=== PATIENT | male | born 1945 | race Caucasian/White ===

== ENCOUNTER 2020-10-10 14:38 | Inpatient (IN) | payer MEDICARE, OTHER ==
[2020-10-10] MEDS ORDERED: Acetaminophen 325 MG Tab PO PRN ×2 (16:59→17:56)
[2020-10-10] MEDS ORDERED: Albuterol/Ipratropium 3.0-0.5 MG/3 ML Neb Soln NEB PRN (16:59)
[2020-10-10] MEDS ORDERED: Calcium Carbonate 750 MG Tab.Chew PO PRN ×2 (17:01→18:40)
[2020-10-10] MEDS ORDERED: Melatonin 3 MG Tab PO PRN ×2 (17:02→18:52)
[2020-10-10] MEDS ORDERED: Sennosides 8.6 MG Tab PO PRN (17:02)
[2020-10-10] MEDS ORDERED: Non-Formulary Medication 1 Each (Melatonin/Pyridoxine Hcl (B6) [Melatonin 3 Mg Tablet] 3 M PO PRN (17:56)
[2020-10-10] MEDS ORDERED: Albuterol/Ipratropium 3.0-0.5 MG/3 ML Neb Soln INH PRN (17:56)
--- NOTE | 2020-10-10 18:08 | PCM.HP.2 ---
H&P History of Present Illness - General Date of Service: 10/10/20 Admit Problem/Dx: Admission Diagnosis/Problem Admission Diagnosis/Problem Weakness, s/p COVID pneumonia Source of Information: Patient History Limitations: Reports: No Limitations - History of Present Illness Initial Comments - Free Text/Narative: Lukas Hendrickson ("Ethan") is a 75-year-old male who is admitted today as a stepdown to swing bed after her acute stay for COVID pneumonia. Past medical history is notable only for hyperlipidemia. He was diagnosed with Covid on 09/20/2020 after presenting to the ER in [place] with profound weakness and a cough. He was discharged home with home oxygen monitoring but due to worsening weakness he presented back to the ER on 09/27/2020. Due to profound level of weakness he was admitted to the hospital in [place] and started on standard therapy such as REM to severe, IV dexamethasone, and convalescent plasma. Over the next 2 days his oxygen events continued to rise, d-dimer and white cell count went up. CTA on 09/27/2020 was negative for PE. Due to this he was transferred to the special care unit at [facility] in [place] for further treatment. Received a second dose of convalescent plasma on 10/05/2020. He did complete the entire course of REM to severe and dexamethasone. His oxygen requirement finally started to improve and this was able to be titrated down. He was able to be discharged off of the special care unit on 10/06/2020. Due to ongoing weakness physical therapy and occupational therapy had been seeing him in the hospital and recommended continued half-way at time of discharge. He was deemed well enough to transfer down to a swing bed stay and is now with us at [facility]. the only new medication he brings with him today is a DuoNeb that was prescribed during his stay at [facility]. He can take 1 dose every 4 hours as needed. Otherwise is not on any medications other than supplements. Only allergy is to iodine. At this time patient complains only of continued weakness. Feels like he would to be doing well if he could just get up to use the restroom on his own. He does remain on some low-flow oxygen at this time. Still having some intermittent coughing. Denies any shortness of breath, chest pain, GI upset, bowel or bladder dysfunction. Looking forward to completing his therapies and getting stronger in anticipation of being able to return home with his and his 2 dogs. - Related Data Allergies/Adverse Reactions: Allergies Allergy/AdvReac Type Severity Reaction Status Date / Time iodine Allergy Hives Verified 10/10/20 16:55 Home Medications: Home Meds Acetaminophen 650 mg PO Q4HR PRN 10/10/20 [History] Albuterol/Ipratropium [DuoNeb 3.0-0.5 MG/3 ML] 3 ml INH Q4HR PRN 10/10/20 [History] Ascorbate Calcium [Vitamin C] 500 mg PO DAILY 10/10/20 [History] Calcium Carbonate 1,000 mg PO Q4HR PRN 10/10/20 [History] Cholecalciferol (Vitamin D3) [Vitamin D3] 1,000 units PO DAILY 10/10/20 [History] Docusate Sodium/Sennosides [Senna Plus] 2 tab PO BID PRN 10/10/20 [History] Melatonin/Pyridoxine HCl (B6) [Melatonin 3 mg Tablet] 3 mg PO BEDTIME PRN 10/10/20 [History] Multivitamin [Multi-Day Vitamins] 1 tab PO DAILY 10/10/20 [History] [place]-3/DHA/Epa/Fish Oil [[place] 3 500 Softgel] 1 cap PO DAILY 10/10/20 [History] Past Medical History Cardiovascular History: Reports: High Cholesterol Social & Family History - Family History Cardiac: Reports: Hypertension (Mom) Respiratory: Reports: COPD (mom and dad), Other (See Below) (Lung cancer (mom)) - Tobacco Use Tobacco Use Status *Q: Former Tobacco User - Alcohol Use Alcohol Use History: No - Living Situation & Occupation Living situation: Reports: (Lives at home with and 2 dogs. Son lives in the area.) H&P Review of Systems - Review of Systems: Review Of Systems: See Below General: Reports: Weakness HEENT: Reports: No Symptoms Pulmonary: Reports: No Symptoms Cardiovascular: Reports: No Symptoms Gastrointestinal: Reports: No Symptoms Genitourinary: Reports: No Symptoms Musculoskeletal: Reports: No Symptoms Skin: Reports: No Symptoms Psychiatric: Reports: No Symptoms Neurological: Reports: No Symptoms Hematologic/Lymphatic: Reports: No Symptoms Immunologic: Reports: No Symptoms Exam - Exam Exam: See Below - Vital Signs Vital Signs: Last Vital Signs Temp 98 F 10/10/20 17:26 Pulse 98 11/12/20 17:26 Resp 24 H 10/10/20 17:26 BP 106/67 10/10/20 17:26 Pulse Ox 94 L 10/10/20 17:26 - Exam Quality Assessment: Supplemental Oxygen General: Alert, Oriented HEENT: Conjunctiva Clear, EOMI, Mucosa Moist & [place], Nares Patent Neck: Supple, Trachea Midline Lungs: Normal Respiratory Effort, Crackles (fine crackles appreciated throughout all lung mariscal), Other (supplemental O2 in place, intermittent dry cough) Cardiovascular: Regular Rate, Regular Rhythm GI/Abdominal Exam: Normal Bowel Sounds, Soft, Non-Tender Extremities: Normal Inspection, Normal Range of Motion, Non-Tender, No Pedal Edema Peripheral Pulses: 2+: Dorsalis Pedis (L), Dorsalis Pedis (R) Skin: Warm, Dry, Intact Neurological: Cranial Nerves Intact, Reflexes Equal Bilateral, Strength Equal Bilateral, Other (voice is fairly raspy) Neuro Extensive - Mental Status: Alert, Oriented x3, Normal Mood/Affect Psychiatric: Alert, Normal Affect, Normal Mood Sepsis Event Note - Focused Exam Vital Signs: Vital Signs Temp Pulse Resp BP Pulse Ox 10/10/20 17:26 98 F 98 24 H 106/67 94 L Problem List Initiated/Reviewed/Updated: Yes Orders Last 24hrs: Active Orders 24 hr Category Date Time Status Patient Status [ADT] Routine ADT 10/10/20 17:57 Ordered Activity as Tolerated [RC] 08,20 Care 10/10/20 17:26 Active Oxygen Therapy [RC] PRN Care 10/10/20 17:57 Ordered Pulse Oximetry [RC] CONTINUOUS Care 10/10/20 17:59 Ordered RT Aerosol Therapy [RC] .PRN Care 10/10/20 17:00 Active RT Aerosol Therapy [RC] ASDIRECTED Care 10/10/20 17:57 Ordered Up With Assistance [RC] ASDIRECTED Care 10/10/20 17:57 Ordered VTE/DVT Education [RC] PER UNIT ROUTINE Care 10/10/20 17:57 Ordered Vital Signs [RC] Q8HR Care 10/10/20 17:57 Ordered Consult to Occupational Therapy [OT Evaluation and Cons 10/10/20 16:53 Active Treatment] [CONS] Routine Consult to Physical Therapy [PT Evaluation and Cons 10/10/20 16:52 Active Treatment] [CONS] Routine Regular Diet [DIET] Diet 10/10/20 Dinner Active Acetaminophen [TylenoL] Med 10/10/20 16:59 Active 650 mg PO Q4H PRN Acetaminophen [TylenoL] Med 10/10/20 17:56 Ordered 650 mg PO Q4HR PRN Albuterol/Ipratropium [DuoNeb 3.0-0.5 MG/3 ML] Med 10/10/20 17:56 Ordered 3 ml INH Q4HR PRN Albuterol/Ipratropium [DuoNeb 3.0-0.5 MG/3 ML] Med 10/10/20 16:59 Active 3 ml NEB Q4HRRT PRN Ascorbate Calcium [Vitamin C] Med 10/11/20 08:00 Ordered 500 mg PO DAILY Ascorbic Acid [Vitamin C] Med 10/11/20 08:00 Active 500 mg PO DAILY Calcium Carbonate [Calcium Carbonate] Med 10/10/20 17:56 Ordered 1,000 mg PO Q4HR PRN Calcium Carbonate [Tums Extra Strength] Med 10/10/20 17:01 Active 750 mg PO Q4H PRN Cholecalciferol (Vitamin D3) [Vitamin D3] Med 10/11/20 08:00 Ordered 1,000 units PO DAILY Cholecalciferol (Vitamin D3) [Vitamin D3] Med 10/11/20 08:00 Active 50 mcg PO DAILY Docusate Sodium/Sennosides [Senna Plus] Med 10/10/20 17:56 Ordered 2 tab PO BID PRN Enoxaparin [Lovenox] Med 10/11/20 08:00 Ordered 40 mg SUBCUT DAILY Fish Oil/[place]-3 Fatty Acids [Fish Oil] Med 10/11/20 08:00 Active 1 gm PO DAILY Melatonin Med 10/10/20 17:02 Active 3 mg PO BEDTIME PRN Melatonin/Pyridoxine HCl (B6) [Melatonin 3 mg Tablet] Med 10/10/20 17:56 Ordered 3 mg PO BEDTIME PRN Multivitamin [Multi-Day Vitamins] Med 10/11/20 08:00 Ordered 1 tab PO DAILY Multivitamins w-Iron/Ca/FA/Min [Thera M Plus] Med 10/11/20 08:00 Active 1 tab PO DAILY [place]-3/DHA/Epa/Fish Oil [[place] 3 500 Softgel] Med 10/11/20 08:00 Ordered 1 cap PO DAILY Sennosides [Senna] Med 10/10/20 17:02 Active 8.6 mg PO DAILY PRN Code Status [Resuscitation Status] Routine Resus Stat 10/10/20 16:48 Ordered Medication Orders Acetaminophen (Tylenol) 650 mg PO Q4H PRN PRN Reason: Pain (mild 1-3) Acetaminophen (Tylenol) 650 mg PO Q4HR PRN PRN Reason: Pain Albuterol/Ipratropium (Duoneb 3.0-0.5 Mg/3 Ml) 3 ml NEB Q4HRRT PRN PRN Reason: bronchospasm Albuterol/Ipratropium (Duoneb 3.0-0.5 Mg/3 Ml) 3 ml INH Q4HR PRN PRN Reason: bronchospasm Ascorbic Acid (Vitamin C) 500 mg PO DAILY MAT Calcium Carbonate/Glycine (Tums Extra Strength) 750 mg PO Q4H PRN PRN Reason: Dyspepsia Cholecalciferol (Vitamin D3) 50 mcg PO DAILY MAT Cholecalciferol (Vitamin D3) mcg PO DAILY MAT Fish Oil (Fish Oil) 1 gm PO DAILY MAT Melatonin (Melatonin) 3 mg PO BEDTIME PRN PRN Reason: Insomnia Multivitamins/Minerals (Thera M Plus) 1 tab PO DAILY MAT Non-Formulary Medication (Ascorbate Calcium [Vitamin C]) 500 mg PO DAILY MAT Non-Formulary Medication (Calcium Carbonate [Calcium Carbonate]) 1,000 mg PO Q4HR PRN PRN Reason: Dyspepsia Non-Formulary Medication (Melatonin/Pyridoxine Hcl (B6) [Melatonin 3 Mg Tablet]) 3 mg PO BEDTIME PRN PRN Reason: Insomnia Non-Formulary Medication (Multivitamin [Multi-Day Vitamins]) 1 tab PO DAILY MAT Non-Formulary Medication ([place]-3/Dha/Epa/Fish Oil [[place] 3 500 Softgel]) 1 cap PO DAILY MAT Senna (Senna) 8.6 mg PO DAILY PRN PRN Reason: Constipation Senna/Docusate Sodium (Senna Plus) 2 tab PO BID PRN PRN Reason: Constipation Assessment/Plan Comment:: # Weakness s/p Acute Hypoxic respiratory failure 2/2 COVID pneumonia - Patient diagnosed Covid on 09/20/2020. Had worsening respiratory status and ended up being transferred to [place] for cares in the special care unit. Did undergo all recommended therapies including REM to severe, convalescent plasma, steroids. Oxygen status has improved although still remains on some supplemental oxygen. - Physical therapy as well as occupational therapy did evaluate patient prior to discharge and they thought that he would benefit from continued half-way at this time prior to him being able to return home - Patient continues to have some fine crackles throughout the lung mariscal Plan: -Admit to swing-bed -PT and OT ordered -Up with assist of 1 -Supplemental O2 to keep sats >92% -Continue scheduled duoneb q4hr PRN -RT per protocol -Incentive spirometer every hour while awake (patient has his from [place]) Home Meds: - OK to continue all home supplements - Not on any prescribed medications Diet: Regular IVF: none DVT: Lovenox, once more ambulatory will consider switching of chemophrophylaxis CODE: FULL - Mortality Measure Prognosis:: Good
[2020-10-11] MEDS ORDERED: Fish Oil/Omega-3 Fatty Acids 1 Gm Cap PO SCH (08:00)
[2020-10-11] MEDS ORDERED: Ascorbic Acid 500 MG Tab PO SCH (08:00)
[2020-10-11] MEDS ORDERED: Beta-Carotene (Vitamin A) w/Vitamin C & E plus Minerals Tab PO SCH (08:00)
[2020-10-11] MEDS ORDERED: Multivitamins with Iron/Calcium/Folic Acid/Minerals Tab PO SCH (08:00)
[2020-10-11] MEDS ORDERED: Cholecalciferol (Vitamin D3) 25 MCG Tab PO SCH (08:00)
[2020-10-11] MEDS: Multivitamins with Iron/Calcium/Folic Acid/Minerals Tab PO SCH (09:11)
[2020-10-11] MEDS: Enoxaparin 40 MG/0.4 ML Syringe SUBCUT SCH (09:11)
[2020-10-11] MEDS: Ascorbic Acid 500 MG Tab PO SCH (09:11)
[2020-10-11] MEDS: Cholecalciferol (Vitamin D3) 25 MCG Tab PO SCH (09:11)
[2020-10-11] MEDS: Fish Oil/Omega-3 Fatty Acids 1 Gm Cap PO SCH (09:11)
--- NOTE | 2020-10-11 09:39 | PCM.SN.2 ---
- Free Text/Narrative Note: Subjective: Notified by nurse of patient desaturating into the mid 70s while he was up and ambulating with physical therapy. Patient did turn fairly rodriguez in color per the nurse. Patient was reading pretty heavy. When I arrived the room the patient is sitting up at the side of the bed doing a nebulizer treatment. He does state that he is feeling quite a bit improved from when he was walking. Oxygen saturation is now on the low 90s on 4 L. We did discuss his smoking history as well as the abnormal CT scan that he had been infertile that the provider number looks like he might have infected emphysema. Objective: General: Patient is alert, in no acute distress, sitting up out of bed doing a nebulizer treatment Heart: RRR Lungs: Fine inspiratory crackles heard throughout. This is a little bit less so than what I heard yesterday but he has just finished a nebulizer treatment Assessment/Plan: #Hypoxic Respiratory Failure #?COPD - We will schedule his DuoNeb nebs every 6 hours - We'll also have when necessary duo nebs available every 3 hours for him between, or before therapy - If picture not improving through the weekend we may want to consider adding an another agent scheduled for treatment of COPD - Continuous supplemental oxygen as needed to maintain sats above 90% - Continue incentive spirometry once per hour - If vital sign instability (tachycardia, high fever) will consider ordering repeat labs as well as repeat chest x-ray #Weakness - Continue physical therapy and occupational therapy as ordered
[2020-10-11] MEDS: Albuterol/Ipratropium 3.0-0.5 MG/3 ML Neb Soln NEB SCH ×2 (13:20→20:14)
[2020-10-12] MEDS: Albuterol/Ipratropium 3.0-0.5 MG/3 ML Neb Soln NEB SCH ×4 (00:32→19:39)
[2020-10-12] MEDS: Enoxaparin 40 MG/0.4 ML Syringe SUBCUT SCH (08:30)
[2020-10-12] MEDS: Fish Oil/Omega-3 Fatty Acids 1 Gm Cap PO SCH (08:30)
[2020-10-12] MEDS: Multivitamins with Iron/Calcium/Folic Acid/Minerals Tab PO SCH (08:30)
[2020-10-12] MEDS: Cholecalciferol (Vitamin D3) 25 MCG Tab PO SCH (08:30)
[2020-10-12] MEDS: Ascorbic Acid 500 MG Tab PO SCH (08:30)
[2020-10-13] MEDS: Albuterol/Ipratropium 3.0-0.5 MG/3 ML Neb Soln NEB SCH ×4 (01:15→20:47)
[2020-10-13] MEDS: Fish Oil/Omega-3 Fatty Acids 1 Gm Cap PO SCH (08:34)
[2020-10-13] MEDS: Ascorbic Acid 500 MG Tab PO SCH (08:34)
[2020-10-13] MEDS: Enoxaparin 40 MG/0.4 ML Syringe SUBCUT SCH (08:34)
[2020-10-13] MEDS: Cholecalciferol (Vitamin D3) 25 MCG Tab PO SCH (08:35)
[2020-10-13] MEDS: Multivitamins with Iron/Calcium/Folic Acid/Minerals Tab PO SCH (08:35)
[2020-10-14] MEDS: Albuterol/Ipratropium 3.0-0.5 MG/3 ML Neb Soln NEB SCH ×4 (01:18→19:54)
[2020-10-14] MEDS: Fish Oil/Omega-3 Fatty Acids 1 Gm Cap PO SCH (08:26)
[2020-10-14] MEDS: Multivitamins with Iron/Calcium/Folic Acid/Minerals Tab PO SCH (08:26)
[2020-10-14] MEDS: Ascorbic Acid 500 MG Tab PO SCH (08:27)
[2020-10-14] MEDS: Cholecalciferol (Vitamin D3) 25 MCG Tab PO SCH (08:27)
[2020-10-14] MEDS: Enoxaparin 40 MG/0.4 ML Syringe SUBCUT SCH (08:27)
[2020-10-15] MEDS: Albuterol/Ipratropium 3.0-0.5 MG/3 ML Neb Soln NEB SCH ×4 (01:01→19:31)
[2020-10-15] MEDS: Cholecalciferol (Vitamin D3) 25 MCG Tab PO SCH (08:32)
[2020-10-15] MEDS: Ascorbic Acid 500 MG Tab PO SCH (08:32)
[2020-10-15] MEDS: Fish Oil/Omega-3 Fatty Acids 1 Gm Cap PO SCH (08:32)
[2020-10-15] MEDS: Enoxaparin 40 MG/0.4 ML Syringe SUBCUT SCH (08:32)
[2020-10-15] MEDS: Multivitamins with Iron/Calcium/Folic Acid/Minerals Tab PO SCH (08:32)
[2020-10-16] MEDS: Albuterol/Ipratropium 3.0-0.5 MG/3 ML Neb Soln NEB SCH ×4 (02:26→18:51)
[2020-10-16] MEDS: Enoxaparin 40 MG/0.4 ML Syringe SUBCUT SCH (08:07)
[2020-10-16] MEDS: Fish Oil/Omega-3 Fatty Acids 1 Gm Cap PO SCH (08:07)
[2020-10-16] MEDS: Ascorbic Acid 500 MG Tab PO SCH (08:07)
[2020-10-16] MEDS: Multivitamins with Iron/Calcium/Folic Acid/Minerals Tab PO SCH (08:07)
[2020-10-16] MEDS: Cholecalciferol (Vitamin D3) 25 MCG Tab PO SCH (08:08)
[2020-10-17] MEDS: Albuterol/Ipratropium 3.0-0.5 MG/3 ML Neb Soln NEB SCH ×4 (02:03→18:48)
[2020-10-17] MEDS: Fish Oil/Omega-3 Fatty Acids 1 Gm Cap PO SCH (08:55)
[2020-10-17] MEDS: Cholecalciferol (Vitamin D3) 25 MCG Tab PO SCH (08:55)
[2020-10-17] MEDS: Ascorbic Acid 500 MG Tab PO SCH (08:55)
[2020-10-17] MEDS: Multivitamins with Iron/Calcium/Folic Acid/Minerals Tab PO SCH (08:55)
[2020-10-17] MEDS: Enoxaparin 40 MG/0.4 ML Syringe SUBCUT SCH (08:55)
[2020-10-17] MEDS: Albuterol/Ipratropium 3.0-0.5 MG/3 ML Neb Soln INH PRN (13:23)
--- NOTE | 2020-10-17 14:02 | PCM.SN.2 ---
- Free Text/Narrative Note: Ethan is a 75yoM who is seen today for a short visit. Was notified by nursing staff earlier today that patient again is having troubles with desaturating during his therapies (into the 70s). Got quite fatigued which is putting his shoes on. Still requiring 2 L at rest to maintain his oxygen saturations. They have been increasing his oxygen to 5 L when he is up and ambulating with therapy. He is also brought up concerns about pain with urination as well as need to go very frequently.He does deny any back pain, fevers, chills. Endorses to this appeals writer that he still has the shortness of breath with exertion. We did grab a UA on him which does show trace leukocyte Estrace, white cells, and mucus. Breathing: - Continue duonebs as previously ordered - Continue with supplemental O2 to maintain Sats >92% - Discussed with patient the prolonged course of respiratory compromise following COVID; may even need to discharge home on O2 - Will plan for O2 eval prior to DC UTI: -We will get him started on Macrobid BID for 5 days.
[2020-10-17] MEDS: Nitrofurantoin Monohydrate/Macrocrystalline 100 MG Cap PO SCH (19:22)
[2020-10-18] MEDS: Albuterol/Ipratropium 3.0-0.5 MG/3 ML Neb Soln INH PRN (01:14)
[2020-10-18] MEDS: Albuterol/Ipratropium 3.0-0.5 MG/3 ML Neb Soln NEB SCH ×4 (01:15→18:54)
[2020-10-18] MEDS: Enoxaparin 40 MG/0.4 ML Syringe SUBCUT SCH (08:53)
[2020-10-18] MEDS: Fish Oil/Omega-3 Fatty Acids 1 Gm Cap PO SCH (08:53)
[2020-10-18] MEDS: Multivitamins with Iron/Calcium/Folic Acid/Minerals Tab PO SCH (08:53)
[2020-10-18] MEDS: Nitrofurantoin Monohydrate/Macrocrystalline 100 MG Cap PO SCH ×2 (08:53→19:01)
[2020-10-18] MEDS: Ascorbic Acid 500 MG Tab PO SCH (08:53)
[2020-10-18] MEDS: Cholecalciferol (Vitamin D3) 25 MCG Tab PO SCH (08:54)
[2020-10-19] MEDS: Albuterol/Ipratropium 3.0-0.5 MG/3 ML Neb Soln NEB SCH ×4 (00:36→18:57)
[2020-10-19] MEDS: Enoxaparin 40 MG/0.4 ML Syringe SUBCUT SCH (07:58)
[2020-10-19] MEDS: Ascorbic Acid 500 MG Tab PO SCH (07:58)
[2020-10-19] MEDS: Cholecalciferol (Vitamin D3) 25 MCG Tab PO SCH (07:58)
[2020-10-19] MEDS: Fish Oil/Omega-3 Fatty Acids 1 Gm Cap PO SCH (07:58)
[2020-10-19] MEDS: Multivitamins with Iron/Calcium/Folic Acid/Minerals Tab PO SCH (07:59)
[2020-10-19] MEDS: Nitrofurantoin Monohydrate/Macrocrystalline 100 MG Cap PO SCH ×2 (07:59→19:00)
[2020-10-20] MEDS: Albuterol/Ipratropium 3.0-0.5 MG/3 ML Neb Soln NEB SCH ×4 (00:48→23:49)
[2020-10-20] MEDS: Multivitamins with Iron/Calcium/Folic Acid/Minerals Tab PO SCH (07:36)
[2020-10-20] MEDS: Enoxaparin 40 MG/0.4 ML Syringe SUBCUT SCH (07:36)
[2020-10-20] MEDS: Fish Oil/Omega-3 Fatty Acids 1 Gm Cap PO SCH (07:36)
[2020-10-20] MEDS: Cholecalciferol (Vitamin D3) 25 MCG Tab PO SCH (07:37)
[2020-10-20] MEDS: Ascorbic Acid 500 MG Tab PO SCH (07:37)
[2020-10-20] MEDS: Nitrofurantoin Monohydrate/Macrocrystalline 100 MG Cap PO SCH ×2 (07:37→21:27)
[2020-10-21] MEDS: Enoxaparin 40 MG/0.4 ML Syringe SUBCUT SCH (07:32)
[2020-10-21] MEDS: Albuterol/Ipratropium 3.0-0.5 MG/3 ML Neb Soln NEB SCH ×3 (07:32→23:23)
[2020-10-21] MEDS: Cholecalciferol (Vitamin D3) 25 MCG Tab PO SCH (07:33)
[2020-10-21] MEDS: Multivitamins with Iron/Calcium/Folic Acid/Minerals Tab PO SCH (07:33)
[2020-10-21] MEDS: Fish Oil/Omega-3 Fatty Acids 1 Gm Cap PO SCH (07:33)
[2020-10-21] MEDS: Ascorbic Acid 500 MG Tab PO SCH (07:33)
[2020-10-21] MEDS: Nitrofurantoin Monohydrate/Macrocrystalline 100 MG Cap PO SCH ×2 (07:33→19:32)
[2020-10-21] MEDS: Albuterol/Ipratropium 3.0-0.5 MG/3 ML Neb Soln INH PRN (19:33)
[2020-10-22] MEDS: Albuterol/Ipratropium 3.0-0.5 MG/3 ML Neb Soln NEB SCH ×3 (07:08→23:16)
[2020-10-22] MEDS: Nitrofurantoin Monohydrate/Macrocrystalline 100 MG Cap PO SCH (08:17)
[2020-10-22] MEDS: Enoxaparin 40 MG/0.4 ML Syringe SUBCUT SCH (08:18)
[2020-10-22] MEDS: Cholecalciferol (Vitamin D3) 25 MCG Tab PO SCH (08:18)
[2020-10-22] MEDS: Fish Oil/Omega-3 Fatty Acids 1 Gm Cap PO SCH (08:18)
[2020-10-22] MEDS: Multivitamins with Iron/Calcium/Folic Acid/Minerals Tab PO SCH (08:18)
[2020-10-22] MEDS: Ascorbic Acid 500 MG Tab PO SCH (08:18)
[2020-10-23] MEDS: Albuterol/Ipratropium 3.0-0.5 MG/3 ML Neb Soln NEB SCH (07:00)
[2020-10-23] MEDS: Cholecalciferol (Vitamin D3) 25 MCG Tab PO SCH (07:33)
[2020-10-23] MEDS: Enoxaparin 40 MG/0.4 ML Syringe SUBCUT SCH (07:33)
[2020-10-23] MEDS: Multivitamins with Iron/Calcium/Folic Acid/Minerals Tab PO SCH (07:33)
[2020-10-23] MEDS: Fish Oil/Omega-3 Fatty Acids 1 Gm Cap PO SCH (07:33)
[2020-10-23] MEDS: Ascorbic Acid 500 MG Tab PO SCH (07:33)
--- NOTE | 2020-10-23 08:30 | PCM.DCSUM1 ---
Discharge Summary - Hospital Course Free Text/Narrative:: Lukas Hendrickson ("Ethan") is a 75-year-old male who was admitted to [facility] as a stepdown to swing bed after an acute stay for COVID pneumonia. He was diagnosed with Covid on 09/20/2020 after presenting to the ER in [place] with profound weakness and a cough. He was discharged home with home oxygen monitoring but due to worsening weakness he presented back to the ER on 09/27/2020. Due to profound level of weakness he was admitted to the hospital in [place] and started on standard therapy such as REM to severe, IV dexamethasone, and convalescent plasma. Over the next 2 days his oxygen needs continued to rise, d-dimer and white cell count went up. CTA on 09/27/2020 was negative for PE. Due to his worsening condition he was transferred to the special care unit at [facility] for further treatment. Received a second dose of convalescent plasma on 10/05/2020. He was able to be discharged off of the special care unit on 10/06/2020. Due to ongoing weakness physical therapy and occupational therapy had been seeing him in the hospital and recommended continued custodial at time of discharge; he was transferred to [facility] (on 10/10/20) for further cares and strengthening with ultimate plan to be strong enough to return home. While at [facility] Ethan continued to recover, however slowly. Due to slow recovery pace (and in review of previous imaging) we did schedule Duonebs every 6 hours with PRNs available every 3 in between: concern for the underlying emphysema. His oxygen demand did decrease but still requires it at time of discharge (1L at rest, 4 when up and amublating). Swing bed stay was complicated only by a UTI. This was treated with by mouth Macrobid twice a day for 5 days. They've prior to discharge patient stated that he still had some discomfort and frequent urination, however a repeat UA did not demonstrate any sign of continued infection. At this point physical therapy has signed off. They feel the patient is safe to return home. We will have him follow up with his primary care physician in 2 weeks' time. We will have him continue the duonebs as scheduled in the hospital. We will have him follow up with [facility] respiratory therapy for continued monitoring and weaning of his oxygen demands. - Discharge Data Discharge Date: 10/23/20 Discharge Disposition: Home, Self-Care 01 Condition: Good - Referral to Home Health Primary Care Physician: Fletcher Dominguez MD - Discharge Diagnosis/Problem(s) (1) Hypoxia SNOMED Code(s): 616650234 ICD Code: R09.02 - HYPOXEMIA Status: Acute Current Visit: Yes (2) Pneumonia due to COVID-19 virus SNOMED Code(s): 867767600625896269 ICD Code: U07.1 - COVID-19; J12.89 - OTHER VIRAL PNEUMONIA Status: Acute Current Visit: Yes (3) Weakness SNOMED Code(s): 07994701 ICD Code: R53.1 - WEAKNESS Status: Acute Current Visit: Yes - Patient Summary/Data Consults: Consultations 10/10/20 16:52 Consult to Physical Therapy [PT Evaluation and Treatment] [CONS] Routine 10/10/20 16:53 Consult to Occupational Therapy [OT Evaluation and Treatment] [CONS] Routine - Patient Instructions Diet: Regular Diet as Tolerated Activity: No Strenuous Activities Driving: May Drive Today Showering/Bathing: May Shower - Discharge Plan *PRESCRIPTION DRUG MONITORING PROGRAM REVIEWED*: Not Applicable *COPY OF PRESCRIPTION DRUG MONITORING REPORT IN PATIENT BORIS: Not Applicable Home Medications: Home Meds Acetaminophen 650 mg PO Q4HR PRN 10/10/20 [History] Albuterol/Ipratropium [DuoNeb 3.0-0.5 MG/3 ML] 3 ml INH Q4HR PRN 10/10/20 [History] Ascorbate Calcium [Vitamin C] 500 mg PO DAILY 10/10/20 [History] Calcium Carbonate 1,000 mg PO Q4HR PRN 10/10/20 [History] Cholecalciferol (Vitamin D3) [Vitamin D3] 1,000 units PO DAILY 10/10/20 [History] Docusate Sodium/Sennosides [Senna Plus] 2 tab PO BID PRN 10/10/20 [History] Melatonin 3 mg PO BEDTIME PRN 10/10/20 [History] Multivitamin [Multi-Day Vitamins] 1 tab PO DAILY 10/10/20 [History] Serena-3/DHA/Epa/Fish Oil [[place]rena 3 500 Softgel] 1,000 mg PO DAILY 10/10/20 [History] Oxygen Therapy Mode: Nasal Cannula Oxygen Flow Rate (L/min): 1 (1L at rest, 4L with activity) Maintain SPO2% less than: 92 Referrals: Fletcher Dominguez MD [Primary Care Provider] - - Discharge Summary/Plan Comment DC Time >30 min.: No - Patient Data Vitals - Most Recent: Last Vital Signs Temp 97.9 F 10/23/20 05:49 Pulse 79 10/23/20 05:49 Resp 18 10/23/20 05:49 BP 117/60 10/23/20 05:49 Pulse Ox 94 L 10/23/20 07:04 Weight - Most Recent: 181 lb I&O - Last 24 hours: Intake & Output 10/22/20 10/23/20 10/23/20 22:59 06:59 14:59 Intake Total 560 Balance 560 Lab Results - Last 24 hrs: Laboratory Results - last 24 hr 10/22/20 Range/Units 13:05 Urine Color Yellow (YELLOW) Urine Appearance Clear (CLEAR) Urine pH 5.5 (5.0-8.0) Ur Specific [place] 1.025 Urine Protein Negative (NEGATIVE) mg/dL Urine Glucose (UA) Negative (NEGATIVE) mg/dL Urine Ketones Trace H (NEGATIVE) mg/dL Urine Occult Blood Negative (NEGATIVE) Urine Nitrite Negative (NEGATIVE) Urine Bilirubin Negative (NEGATIVE) Urine Urobilinogen 0.2 (0.2) EU/dL Ur Leukocyte Esterase Negative (NEGATIVE) Med Orders - Current: Current Medications Acetaminophen (Tylenol) 650 mg PO Q4HR PRN PRN Reason: Pain Albuterol/Ipratropium (Duoneb 3.0-0.5 Mg/3 Ml) 3 ml INH Q3HR PRN PRN Reason: bronchospasm Last Admin: 10/21/20 19:33 Dose: 3 ml Documented by: Albuterol/Ipratropium (Duoneb 3.0-0.5 Mg/3 Ml) 3 ml NEB Q8HRRT MAT Last Admin: 10/23/20 07:00 Dose: 3 ml Documented by: Ascorbic Acid (Vitamin C) 500 mg PO DAILY MAT Last Admin: 10/23/20 07:33 Dose: 500 mg Documented by: Calcium Carbonate/Glycine (Tums Extra Strength) 750 mg PO Q4HR PRN PRN Reason: Dyspepsia Last Admin: 10/20/20 01:30 Dose: 750 mg Documented by: Cholecalciferol (Vitamin D3) 25 mcg PO DAILY [facility] Last Admin: 10/23/20 07:33 Dose: 25 mcg Documented by: Enoxaparin Sodium (Lovenox) 40 mg SUBCUT DAILY [facility] Last Admin: 10/23/20 07:33 Dose: 40 mg Documented by: Fish Oil (Fish Oil) 1 gm PO DAILY [facility] Last Admin: 10/23/20 07:33 Dose: 1 gm Documented by: Melatonin (Melatonin) 3 mg PO BEDTIME PRN PRN Reason: Insomnia Multivitamins/Minerals (Thera M Plus) 1 tab PO DAILY [facility] Last Admin: 10/23/20 07:33 Dose: 1 tab Documented by: Senna/Docusate Sodium (Senna Plus) 2 tab PO BID PRN PRN Reason: Constipation Last Admin: 10/13/20 08:34 Dose: 2 tab Documented by: Discontinued Medications Acetaminophen (Tylenol) 650 mg PO Q4H PRN PRN Reason: Pain (mild 1-3) Albuterol/Ipratropium (Duoneb 3.0-0.5 Mg/3 Ml) 3 ml NEB Q4HRRT PRN PRN Reason: bronchospasm Albuterol/Ipratropium (Duoneb 3.0-0.5 Mg/3 Ml) 3 ml INH Q4HR PRN PRN Reason: bronchospasm Last Admin: 10/11/20 09:11 Dose: 3 ml Documented by: Albuterol/Ipratropium (Duoneb 3.0-0.5 Mg/3 Ml) 3 ml NEB Q6H [facility] Last Admin: 10/20/20 12:58 Dose: 3 ml Documented by: Ascorbic Acid (Vitamin C) 500 mg PO DAILY [facility] Calcium Carbonate/Glycine (Tums Extra Strength) 750 mg PO Q4H PRN PRN Reason: Dyspepsia Cholecalciferol (Vitamin D3) 50 mcg PO DAILY [facility] Fish Oil (Fish Oil) 1 gm PO DAILY [facility] Melatonin (Melatonin) 3 mg PO BEDTIME PRN PRN Reason: Insomnia Multivitamins/Minerals (Prosight) 1 tab PO DAILY [facility] Multivitamins/Minerals (Thera M Plus) 1 tab PO DAILY [facility] Nitrofurantoin Macrocrystals (Macrobid) 100 mg PO BID [facility] Stop: 10/22/20 08:01 Last Admin: 10/22/20 08:17 Dose: 100 mg Documented by: Cass (Senna) 8.6 mg PO DAILY PRN PRN Reason: Constipation - Exam Quality Assessment: Reports: Supplemental Oxygen (1.5L at rest) General: Reports: Alert, Oriented HEENT: Reports: Pupils Equal, Mucous Membr. Moist/[place] Neck Neck: Reports: Supple Lungs: Reports: Normal Respiratory Effort, Crackles (fine in the bases (improved drastically)) Cardiovascular: Reports: Regular Rate, Regular Rhythm GI/Abdominal Exam: Normal Bowel Sounds, Soft, Non-Tender Skin: Reports: Warm, Dry Psy/Mental Status: Reports: Alert, Normal Affect, Normal Mood
== END 2020-10-23 11:20 | disposition home or self-care (01) | DRG 947 ==
LOC: VM.MS 16:58
PROVIDERS: ADMIT Family Medicine; ATTEND Family Medicine
DX: R53.1 Weakness (principal); U07.1 COVID-19; J96.91 Respiratory failure, unspecified with hypoxia; N39.0 Urinary tract infection, site not specified; E78.00 Pure hypercholesterolemia, unspecified; Z88.8 Allergy status to other drugs, medicaments and biological substances; Z79.899 Other long term (current) drug therapy; Z87.891 Personal history of nicotine dependence
CPT/HCPCS: 81001; 81003; 87086; 94640; 94760; 97110-GP; 97116-GP; 97161-GP; 97165-GO; 97530-GP; 97535-GO; A9270-GY; J1650; J7620-GY